=== PATIENT | female | born 1990 | race Hispanic/Latino ===

== ENCOUNTER 2022-12-04 19:44 | Emergency (ER) | payer SELFPAY ==
[2022-12-04] MEDS ORDERED: HYDROCODONE/APAP 10/325 TAB ONE (20:30)
[2022-12-04 22:38] VITALS: BP 118/73; TEMP 98.1; O2SAT 99
--- NOTE | 2022-12-19 15:13 | EDPHYS ---
Physician Documentation [facility] Name: Edu Lopez Age: 32 yrs Sex: Female : 1990 Arrival Date: 12/04/2022 Time: 19:57 Bed 21 Private MD: ED Physician Juan Pablo Haney HPI: 12/04 21:30 This 32 yrs old Female presents to ER via Ambulatory with complaints of JELLY avinash FISH STING. 21:30 The patient or guardian complains of pain, sting: jellyfish. The complaints affect the avinash left bicep and left tricep. Context: [place]. Onset: The symptoms/episode began/occurred just prior to arrival. Treatment prior to arrival includes: no previous treatment. Modifying factors: The symptoms are alleviated by nothing. the symptoms are aggravated by nothing. Associated signs and symptoms: The patient has no apparent associated signs or symptoms. Severity of symptoms: At their worst the symptoms were moderate, in the emergency department the symptoms have improved, moderately. The patient has not experienced similar symptoms in the past. 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 - Social history:: Smoking status: Patient denies any tobacco usage or history of. - Family history:: not pertinent. ROS: 21:30 Constitutional: Negative for fever, chills, and weight loss, Eyes: Negative for injury, avinash pain, redness, and discharge, ENT: Negative for injury, pain, and discharge, Neck: Negative for injury, pain, and swelling, Cardiovascular: Negative for chest pain, palpitations, and edema, Respiratory: Negative for shortness of breath, cough, wheezing, and pleuritic chest pain, Abdomen/GI: Negative for abdominal pain, nausea, vomiting, diarrhea, and constipation, Back: Negative for injury and pain, : Negative for injury, bleeding, discharge, and swelling, MS/Extremity: Negative for injury and deformity, Neuro: Negative for headache, weakness, numbness, tingling, and seizure, Psych: Negative for depression, anxiety, suicide ideation, homicidal ideation, and hallucinations, Allergy/Immunology: Negative for hives, rash, and allergies, Endocrine: Negative for neck swelling, polydipsia, polyuria, polyphagia, and marked weight changes, Hematologic/Lymphatic: Negative for swollen nodes, abnormal bleeding, and unusual bruising. 21:30 Skin: Positive for rash, of the left bicep and left tricep. Exam: 21:30 Constitutional: This is a well developed, well nourished patient who is awake, alert, avinash and in no acute distress. Head/Face: Normocephalic, atraumatic. Eyes: Pupils equal round and reactive to light, extra-ocular motions intact. Lids and lashes normal. Conjunctiva and sclera are non-icteric and not injected. Cornea within normal limits. Periorbital areas with no swelling, redness, or edema. ENT: Nares patent. No nasal discharge, no septal abnormalities noted. Tympanic membranes are normal and external auditory canals are clear. Oropharynx with no redness, swelling, or masses, exudates, or evidence of obstruction, uvula midline. Mucous membranes moist. Neck: Trachea midline, no thyromegaly or masses palpated, and no cervical lymphadenopathy. Supple, full range of motion without nuchal rigidity, or vertebral point tenderness. No Meningismus. Chest/axilla: Normal chest wall appearance and motion. Nontender with no deformity. No lesions are appreciated. Cardiovascular: Regular rate and rhythm with a normal S1 and S2. No gallops, murmurs, or rubs. Normal PMI, no JVD. No pulse deficits. Respiratory: Lungs have equal breath sounds bilaterally, clear to auscultation and percussion. No rales, rhonchi or wheezes noted. No increased work of breathing, no retractions or nasal flaring. Abdomen/GI: Soft, non-tender, with normal bowel sounds. No distension or tympany. No guarding or rebound. No evidence of tenderness throughout. Back: No spinal tenderness. No costovertebral tenderness. Full range of motion. Skin: Warm, dry with normal turgor. Normal color with no rashes, no lesions, and no evidence of cellulitis. Neuro: Awake and alert, GCS 15, oriented to person, place, time, and situation. Cranial nerves II-XII grossly intact. Motor strength 5/5 in all extremities. Sensory grossly intact. Cerebellar exam normal. Normal gait. Psych: Awake, alert, with orientation to person, place and time. Behavior, mood, and affect are within normal limits. 21:30 Musculoskeletal/extremity: Extremities: grossly normal except: pain, rash. 21:30 Skin: injury, jelly fish sting to left upper arm. Vital Signs: 20:36 BP 118 / 73; Pulse 97; Resp 18; Temp 98.1(TE); Pulse Ox 99% on R/A; Weight 115.67 kg; oe Height 5 ft. 7 in. ; 20:36 Body Mass Index 39.94 (115.67 kg, 170.18 cm) oe MDM: 20:13 Patient medically screened. avinash 21:33 Differential diagnosis: abrasion, tendonitis. Data reviewed: vital signs, nurses notes. [facility] Consideration of Admission/Observation Escalation of care including admission/observation considered. I considered the following discharge prescriptions or medication management in the emergency department Medications were administered in the Emergency Department. See MAR. Test considered but Not performed: Labs: no cbc , no com met. Historians other than the Patient: Family Member: family and children. 12/04 20:15 Order name: Carrie. Order: hot soaks; Complete Time: 20:42 avinash Administered Medications: 20:20 Drug: [place] PO 10 mg-325 mg 1 tabs Route: PO; eh3 21:52 Follow up: Response: Pain is decreased [facility] Disposition Summary: 12/04/22 21:37 Discharge Ordered Location: Home [facility] Problem: new avinash Symptoms: have improved avinash Condition: Stable avinash Diagnosis - Toxic effect of contact with other jellyfish, accidental (unintentional), initial avinash encounter Followup: avinash - With: Private Physician - When: 2 - 3 days - Reason: Recheck today's complaints, Continuance of care, Re-evaluation by your physician Discharge Instructions: - Discharge Summary Sheet avinash - Marine Life Injury avinash - Marine Life Injury, [id number] [facility] Forms: - Medication Reconciliation Form [facility] - Thank You Letter avinash - Antibiotic Education avinash - Prescription Opioid Use avinash Prescriptions: - acetaminophen-codeine 300-15 mg Oral tablet - take 2 tablet by ORAL route every 6 hours; 20 tablet; Refills: 0, Product avinash Selection Permitted Signatures: Juan Pablo Haney MD MD cha Hall, Erin, RN RN 3
--- NOTE | 2022-12-19 15:13 | ER ---
Nurse's Notes [facility] Name: Edu Lopez Age: 32 yrs Sex: Female : 1990 Arrival Date: 12/04/2022 Time: 19:57 Bed 21 Private MD: Diagnosis: Toxic effect of contact with other jellyfish, accidental (unintentional), initial encounter Presentation: 12/04 20:13 Chief complaint: Patient states: jellyfish stings on hunter legs and left arm eh3 approximately 1 hour ago. Ebola Screen: No symptoms or risks identified at this time. Initial Sepsis Screen: Does the patient meet any 2 criteria? No. Patient's initial sepsis screen is negative. Does the patient have a suspected source of infection? No. Patient's initial sepsis screen is negative. Risk Assessment: Do you want to hurt yourself or someone else? Patient reports no desire to harm self or others. Onset of symptoms was December 04, 2022. 20:13 Method Of Arrival: Ambulatory 3 20:13 Acuity: PAMELA 3 eh3 20:13 Coronavirus screen: Vaccine status: Patient reports being unvaccinated. eh3 Triage Assessment: 20:13 General: Appears in no apparent distress. uncomfortable, Behavior is cooperative, eh3 appropriate for age. Pain: Complains of pain in left arm, right leg and left leg. 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 - Social history:: Smoking status: Patient denies any tobacco usage or history of. - Family history:: not pertinent. Screenin:14 [facility] ED Fall Risk Assessment (Adult) Score/Fall Risk Level 0 - 2 = Low Risk. Abuse eh3 screen: Denies threats or abuse. Denies injuries from another. Nutritional screening: No deficits noted. Tuberculosis screening: No symptoms or risk factors identified. Assessment: 20:14 Reassessment: No changes from previously documented assessment. See triage assessment. eh3 General: Appears in no apparent distress. uncomfortable, Behavior is calm, cooperative, appropriate for age. Pain: Complains of pain in left arm, right leg and left leg. Neuro: Level of Consciousness is awake, alert, obeys commands, Oriented to person, place, time, situation. Cardiovascular: Capillary refill < 3 seconds Patient's skin is warm and dry. Respiratory: Airway is patent Respiratory effort is even, unlabored, Respiratory pattern is regular, symmetrical. GI: Abdomen is round non-distended. : No signs and/or symptoms were reported regarding the genitourinary system. EENT: No signs and/or symptoms were reported regarding the EENT system. Derm: patches of red raised skin on hunter legs and left arm, pt reports pain at sites. Musculoskeletal: Circulation, motion, and sensation intact. Range of motion: intact in all extremities. Vital Signs: 20:36 BP 118 / 73; Pulse 97; Resp 18; Temp 98.1(TE); Pulse Ox 99% on R/A; Weight 115.67 kg; oe Height 5 ft. 7 in. ; 20:36 Body Mass Index 39.94 (115.67 kg, 170.18 cm) oe ED Course: 19:57 Patient arrived in ED. 20:13 Edith Devine, RN is Primary Nurse. eh3 20:13 Juan Pablo Haney MD is Attending Physician. [facility] 20:13 Arm band placed on. eh3 20:14 Triage completed. eh3 20:14 Patient has correct armband on for positive identification. Bed in low position. Call eh3 light in reach. Door closed. Noise minimized. Warm blanket given. 21:51 No provider procedures requiring assistance completed. Patient did not have IV access eh3 during this emergency room visit. Administered Medications: 20:20 Drug: [place] PO 10 mg-325 mg 1 tabs Route: PO; 3 21:52 Follow up: Response: Pain is decreased eh3 Medication: 21:51 VIS not applicable for this client. eh3 Outcome: 21:37 Discharge ordered by . [facility] 21:51 Discharged to home ambulatory, with family. eh3 21:51 Condition: stable 21:51 Discharge instructions given to patient, Instructed on discharge instructions, follow up and referral plans. medication usage, Demonstrated understanding of instructions, follow-up care, medications, Prescriptions given X 1. 21:51 Patient left the ED. eh3 Signatures: Juan Pablo Haney MD MD cha Salyer, Edna es Espinosa, [place] Edith Devine, RN RN 3
== END 2022-12-04 21:51 | disposition home or self-care (01) ==
LOC: ER 19:44
DX: R21 Rash and other nonspecific skin eruption (principal); W56.89XA Other contact with other nonvenomous marine animals, initial encounter
CPT/HCPCS: 99283